=== PATIENT | female | born 1940 | race Caucasian/White ===

== ENCOUNTER 2016-06-25 08:01 | Day surgery (SDC) | payer OTHER ==
[~2016-06-25] VITALS: Ht 160 cm; Wt 71.2 kg
[~2016-06-25 08:01] MED LIST: CALCIUM 600 MG1 EACH PO; CITALOPRAM HBR20 MG PO; DAILY VITE1 EAC1 PO; DUOFER 28 MG TA28 MG PO; ELAVIL10 MG PO; Ecotrin PO; FEOSOL BIFERA 228 MG PO; FIORICET 50-301 EACH PO; Feosol PO; HYDROCODON-ACE1 EAC7 PO; I-CAPS AREDS S1 EACH PO; ICAPS MULTIV1 TABLET PO; LIPITOR10 MG PO; LISINOPRIL-HCT1 EAC3 PO; Levothroid,Synthroid PO; Lovenox SC; NEURONTIN100 MG PO; NORTRIPTYLINE H75 MG PO; OMEPRAZOLE40 M1 PO; PERCOCET 10/1 TABLET PO; PRAVACHOL40 MG PO; Pravachol PO; SYNTHROID112 MCG PO; SYNTHROID125 MCG PO; SYNTHROID137 MCG PO; SYNTHROID150 MCG PO; Senokot S,Pericolace PO; VITAMIN D31000 UNIT PO; Vicodin,Norco 5/325 PO; ZESTRIL,PRINIVIL5 MG PO; Zestoretic,Prinzide PO; celeBREX PO
== END 2016-06-25 09:54 | disposition home or self-care (01) ==
LOC: PAIN 08:01
PROC: 3E0S33Z Introduction of Anti-inflammatory into Epidural Space, Percutaneous Approach (ICD-10-PCS; principal; 2016-06-25)
DX: M46.1 Sacroiliitis, not elsewhere classified (principal); F41.9 Anxiety disorder, unspecified; G89.4 Chronic pain syndrome; M53.3 Sacrococcygeal disorders, not elsewhere classified; M54.16 Radiculopathy, lumbar region; F17.200 Nicotine dependence, unspecified, uncomplicated; K44.9 Diaphragmatic hernia without obstruction or gangrene; E03.9 Hypothyroidism, unspecified; Z89.511 Acquired absence of right leg below knee; I10 Essential (primary) hypertension; E78.5 Hyperlipidemia, unspecified; Z79.891 Long term (current) use of opiate analgesic; K21.9 Gastro-esophageal reflux disease without esophagitis; Z88.5 Allergy status to narcotic agent
CPT/HCPCS: J1030; J2250; J3010; S0020